=== PATIENT | male | born 1960 | race Caucasian/White ===

== ENCOUNTER → 2017-05-06 | Outpatient (CLI) | payer BC ==
[2017-05-06 09:53] LABS: Basophils # (A) 0.1 k/uL (0-0.2); Basophils % (A) 1 %; CHCM 32.4; Eosinophils # (A) 0.2 k/uL (0-0.7); Eosinophils % (A) 3 %; HCT 46.8 % (39.0-53.0); HDW 2.19; Luc # (Auto) 0.12; Luc % (Auto) 3; Lymphocytes # (A) 1.3 k/uL (1.0-4.8); Lymphocytes % (A) 29 %; MCH 30.7 pg (25.0-35.0); MCV 96.1 fL (80.0-100.0); Mean Platelet Volume 7.2; Monocytes # (A) 0.4 k/uL (0-1.0); Monocytes % (A) 9 %; Neutrophils # (A) 2.5 k/uL (1.3-7.7); Neutrophils % (A) 55 %; RBC 4.87 m/uL (4.30-5.90); RDW 13.3 % (11.5-15.5); WBC 4.6 k/uL (3.8-10.6); WBC (Perox) 4.67
[2017-05-06 11:17] LABS: ALT 43 U/L (21-72); AST 30 U/L (17-59); Alkaline Phosphatase 53 U/L (38-126); Anion Gap 8 mmol/L; Blood Urea Nitrogen 15 mg/dL (9-20); C Reactive Protein <5.0 mg/L (<10.0); Calcium 9.5 mg/dL (8.4-10.2); Carbon Dioxide 27 mmol/L (22-30); Chloride 101 mmol/L (98-107); Cholesterol 193 mg/dL (<200); Creatine Kinase 98 U/L (55-170); Glucose 91 mg/dL (74-99); HDL Cholesterol 57 mg/dL (40-60); Non-African American GFR(MDRD) >60 (>60 ml/min/1.73 sqM); Potassium 4.4 mmol/L (3.5-5.1); Sodium 136 mmol/L (137-145); Total Bilirubin 0.7 mg/dL (0.2-1.3); Total Protein 7.1 g/dL (6.3-8.2)
[2017-05-06 11:42] LABS: Prostate Specific Antigen 0.74 ng/mL (0.00-4.00)
[2017-05-06 13:50] LABS: Erythrocyte Sedimentation Rate 2 mm/hr (0-15)
== END | disposition home or self-care (01) ==
LOC: LABWHC1 09:10
PROVIDERS: ATTEND Internal Medicine
DX: E78.5 Hyperlipidemia, unspecified (principal); N40.0 Benign prostatic hyperplasia without lower urinary tract symptoms; I45.10 Unspecified right bundle-branch block
CPT/HCPCS: 36415; 80053; 80061; 82306; 82550; 84153; 84443; 85025; 85652; 86140

== ENCOUNTER → 2017-09-04 | Outpatient (CLI) | payer BC ==
--- NOTE | 2017-09-04 15:04 | XR ---
EXAMINATION TYPE: XR chest 2V DATE OF EXAM: 09/04/2017 COMPARISON: Prior chest x-ray 10/30/2009 HISTORY: COPD and shortness of breath TECHNIQUE: Frontal and lateral views of the chest are obtained. FINDINGS: There is no focal air space opacity, pleural effusion, or pneumothorax seen. The cardiac silhouette size is within normal limits. Lung volumes are prominent. The osseous structures are inta ct. IMPRESSION: No acute cardiopulmonary process.
== END | disposition home or self-care (01) ==
LOC: RADXRMAIN 14:09
PROVIDERS: ATTEND Internal Medicine
DX: R06.02 Shortness of breath (principal); J44.9 Chronic obstructive pulmonary disease, unspecified
CPT/HCPCS: 71046

== ENCOUNTER 2018-01-13 01:13 | Emergency (ER) | payer BC ==
[2018-01-13 01:25] VITALS: TEMP 97.7
[2018-01-13 01:25] LABS: Glucose,Whole Blood 90 mg/dL (75-99)
[2018-01-13] MEDS ORDERED: SODIUM CHLORIDE 0.9% 1,000 ML IV STA (01:25)
--- NOTE | 2018-01-13 01:29 | ED ---
General Adult HPI - General Chief complaint: Dizziness Stated complaint: Lightheadedness Time Seen by Provider: 01/13/18 01:15 Source: patient, EMS, RN notes reviewed Mode of arrival: EMS Limitations: no limitations - History of Present Illness Initial comments: Patient is a pleasant 57-year-old male presenting to the emergency department with lightheadedness. Patient awoke from sleep around 12:10 AM. Patient felt lightheaded. Patient was able to get up and use the restroom without difficulty. Patient did feel flushed. Symptoms lasted 10-15 minutes and have now resolved. Patient states he did feel anxious after the onset of his symptoms. Patient states there is a history of anxiety and his family. Patient describes dizziness as lightheadedness. Patient denies any spinning type sensation. No speech problems. No difficulty with walking. No weakness. No loss of sensation. - Related Data Home Medications Medication Instructions Recorded Confirmed Rosuvastatin Calcium [Crestor] 1 tab PO DIRECTED 10/07/14 02/17/16 Allergies Allergy/AdvReac Type Severity Reaction Status Date / Time Penicillins Allergy Rash/Hives Verified 02/17/16 07:52 Review of Systems ROS Statement: Those systems with pertinent positive or pertinent negative responses have been documented in the HPI. ROS Other: All systems not noted in ROS Statement are negative. Constitutional: Denies: fever Eyes: Denies: eye pain ENT: Denies: ear pain Respiratory: Denies: cough Cardiovascular: Denies: chest pain Endocrine: Denies: fatigue Gastrointestinal: Denies: abdominal pain Genitourinary: Denies: dysuria Musculoskeletal: Denies: back pain Skin: Denies: rash Neurological: Denies: headache, confusion Psychiatric: Reports: anxiety Past Medical History Past Medical History: Hyperlipidemia History of Any Multi-Drug Resistant Organisms: None Reported Additional Past Surgical History / Comment(s): sinus surgery, cyst removed from vocal cord Past Psychological History: No Psychological Hx Reported Smoking Status: Current some day smoker Past Alcohol Use History: Daily Past Drug Use History: None Reported General Exam Limitations: no limitations General appearance: alert, in no apparent distress Head exam: Present: atraumatic Eye exam: Present: normal appearance, PERRL, EOMI. Absent: nystagmus ENT exam: Present: normal oropharynx Neck exam: Present: normal inspection Respiratory exam: Present: normal lung sounds bilaterally Cardiovascular Exam: Present: regular rate, normal rhythm GI/Abdominal exam: Present: soft. Absent: tenderness Extremities exam: Present: normal inspection Neurological exam: Present: alert, oriented X3, CN II-XII intact. Absent: motor sensory deficit Expanded Neurological exam: Present: protecting the airway Patient oriented to: Present: person, place, time Speech: Present: fluid speech Cranial nerves: EOM's Intact: Normal, Facial Sensation: Normal Sensory exam: Upper Extremity Light Touch: Normal, Lower Extremity Light Touch: Normal Motor strength exam: RUE: 5, LUE: 5, RLE: 5, LLE: 5 Eye Response: (4) open spontaneously Motor Response: (6) obeys commands Verbal Response: (5) oriented Psychiatric exam: Present: normal affect, normal mood Skin exam: Present: normal color Course Vital Signs 01/13/18 01/13/18 01:20 02:30 Temperature 97.7 F Pulse Rate 69 62 Respiratory 18 16 Rate Blood Pressure 139/82 124/75 O2 Sat by Pulse 98 98 Oximetry EKG Findings - EKG Comments: EKG Findings:: Normal sinus rhythm 68. [place] 138. QRS 100. QT 402. QTC 427. Normal axis. Normal QRS. No acute ST change. Medical Decision Making - Medical Decision Making Patient reevaluated and resting comfortably in bed. Patient remained symptom- free at this time. Patient believes his symptoms were likely related to stress. Patient and family updated on results and need for follow-up. - Lab Data Result diagrams: 01/13/18 01:24 01/13/18 02:38 Lab Results 01/13/18 01/13/18 01/13/18 Range/Units 01:24 01:24 01:24 WBC 5.9 (3.8-10.6) k/uL RBC 4.68 (4.30-5.90) m/uL Hgb 14.8 (13.0-17.5) gm/dL Hct 43.4 (39.0-53.0) % MCV 92.6 (80.0-100.0) fL MCH 31.6 (25.0-35.0) pg MCHC 34.2 (31.0-37.0) g/dL RDW 12.7 (11.5-15.5) % Plt Count 259 (150-450) k/uL Neutrophils % 52 % Lymphocytes % 34 % Monocytes % 7 % Eosinophils % 4 % Basophils % 1 % Neutrophils # 3.1 (1.3-7.7) k/uL Lymphocytes # 2.0 (1.0-4.8) k/uL Monocytes # 0.4 (0-1.0) k/uL Eosinophils # 0.2 (0-0.7) k/uL Basophils # 0.0 (0-0.2) k/uL PT 10.5 (9.0-12.0) sec INR 1.1 (<1.2) APTT 24.1 (22.0-30.0) sec Sodium (137-145) mmol/L Potassium (3.5-5.1) mmol/L Chloride (98-107) mmol/L Carbon Dioxide (22-30) mmol/L Anion Gap mmol/L BUN (9-20) mg/dL Creatinine (0.66-1.25) mg/dL Est GFR (CKD-EPI)AfAm (>60 ml/min/1.73 sqM) Est GFR (CKD-EPI)NonAf (>60 ml/min/1.73 sqM) Glucose (74-99) mg/dL POC Glucose (mg/dL) 90 (75-99) mg/dL POC Glu [employer] Bagger ID Yulia, Nikki Calcium (8.4-10.2) mg/dL Total Bilirubin (0.2-1.3) mg/dL AST (17-59) U/L ALT (21-72) U/L Alkaline Phosphatase (38-126) U/L Total Creatine Kinase (55-170) U/L CK-MB (CK-2) (0.0-2.4) ng/mL CK-MB (CK-2) Rel Index Troponin I (0.000-0.034) ng/mL Total Protein (6.3-8.2) g/dL Albumin (3.5-5.0) g/dL Urine Color Urine Appearance (Clear) Urine pH (5.0-8.0) Ur Specific [place] (1.001-1.035) Urine Protein (Negative) Urine Glucose (UA) (Negative) Urine Ketones (Negative) Urine Blood (Negative) Urine Nitrite (Negative) Urine Bilirubin (Negative) Urine Urobilinogen (<2.0) mg/dL Ur Leukocyte Esterase (Negative) 01/13/18 01/13/18 01/13/18 Range/Units 02:38 02:38 02:38 WBC (3.8-10.6) k/uL RBC (4.30-5.90) m/uL Hgb (13.0-17.5) gm/dL Hct (39.0-53.0) % MCV (80.0-100.0) fL MCH (25.0-35.0) pg MCHC (31.0-37.0) g/dL RDW (11.5-15.5) % Plt Count (150-450) k/uL Neutrophils % % Lymphocytes % % Monocytes % % Eosinophils % % Basophils % % Neutrophils # (1.3-7.7) k/uL Lymphocytes # (1.0-4.8) k/uL Monocytes # (0-1.0) k/uL Eosinophils # (0-0.7) k/uL Basophils # (0-0.2) k/uL PT (9.0-12.0) sec INR (<1.2) APTT (22.0-30.0) sec Sodium 139 (137-145) mmol/L Potassium 3.9 (3.5-5.1) mmol/L Chloride 105 (98-107) mmol/L Carbon Dioxide 26 (22-30) mmol/L Anion Gap 8 mmol/L BUN 12 (9-20) mg/dL Creatinine 0.60 L (0.66-1.25) mg/dL Est GFR (CKD-EPI)AfAm >90 (>60 ml/min/1.73 sqM) Est GFR (CKD-EPI)NonAf >90 (>60 ml/min/1.73 sqM) Glucose 93 (74-99) mg/dL POC Glucose (mg/dL) (75-99) mg/dL POC Glu [employer] Bagger ID Calcium 9.4 (8.4-10.2) mg/dL Total Bilirubin 0.4 (0.2-1.3) mg/dL AST 28 (17-59) U/L ALT 36 (21-72) U/L Alkaline Phosphatase 44 (38-126) U/L Total Creatine Kinase 93 (55-170) U/L CK-MB (CK-2) 1.2 (0.0-2.4) ng/mL CK-MB (CK-2) Rel Index 1.3 Troponin I <0.012 (0.000-0.034) ng/mL Total Protein 6.6 (6.3-8.2) g/dL Albumin 4.1 (3.5-5.0) g/dL Urine Color Colorless Urine Appearance Clear (Clear) Urine pH 6.5 (5.0-8.0) Ur Specific [place] 1.004 (1.001-1.035) Urine Protein Negative (Negative) Urine Glucose (UA) Negative (Negative) Urine Ketones Negative (Negative) Urine Blood Negative (Negative) Urine Nitrite Negative (Negative) Urine Bilirubin Negative (Negative) Urine Urobilinogen <2.0 (<2.0) mg/dL Ur Leukocyte Esterase Negative (Negative) - Radiology Data Radiology results: report reviewed (Computed tomography scan of the brain shows no acute process), image reviewed (X-ray shows no acute process) Disposition Clinical Impression: Light headedness Disposition: HOME SELF-CARE Condition: Stable Instructions: Dizziness (ED) Additional Instructions: Please follow-up with primary care physician in the next day or 2 for recheck. Return for weakness, confusion, speech problems, increased dizziness, worsening symptoms or other concerns. Is patient prescribed a controlled substance at d/c from ED?: No Referrals: Darren Gale MD [Primary Care Provider] - 1-2 days Time of Disposition: 03:38
[2018-01-13 01:53] LABS: INR 1.1 (<1.2); Partial Thromboplastin Time 24.1 sec (22.0-30.0); Prothrombin Time 10.5 sec (9.0-12.0)
[2018-01-13 01:56] LABS: Basophils % (A) 1 %; Eosinophils # (A) 0.2 k/uL (0-0.7); Eosinophils % (A) 4 %; HCT 43.4 % (39.0-53.0); HGB 14.8 gm/dL (13.0-17.5); Lymphocytes % (A) 34 %; MCH 31.6 pg (25.0-35.0); MCHC 34.2 g/dL (31.0-37.0); MCV 92.6 fL (80.0-100.0); Mean Platelet Volume 6.8; Monocytes # (A) 0.4 k/uL (0-1.0); Monocytes % (A) 7 %; Neutrophils # (A) 3.1 k/uL (1.3-7.7); Neutrophils % (A) 52 %; Platelet Count 259 k/uL (150-450); RBC 4.68 m/uL (4.30-5.90); RDW 12.7 % (11.5-15.5); WBC 5.9 k/uL (3.8-10.6)
--- NOTE | 2018-01-13 02:29 | CT ---
EXAMINATION TYPE: CT brain wo con DATE OF EXAM: 01/13/2018 COMPARISON: 10/07/2014 HISTORY: flush;weakness CT DLP: 1081.60 mGycm Automated exposure control for dose reduction was used. FINDINGS: Ventricles of normal size. There is no mass effect nor midline shift. There is no sign of intracrania l hemorrhage. The calvarium is intact. IMPRESSION: NEGATIVE CT SCAN OF THE BRAIN. NO CHANGE.
--- NOTE | 2018-01-13 02:30 | XR ---
EXAMINATION TYPE: XR chest 2V DATE OF EXAM: 01/13/2018 COMPARISON: 09/04/2017 HISTORY: Weakness TECHNIQUE: Frontal and lateral views of the chest are obtained. FINDINGS: Heart and mediastinum are normal. Lungs are clear. Costophrenic angles are clear. Bony tho rax is intact. There are chest leads. IMPRESSION: Normal chest. No change.
[2018-01-13 02:48] LABS: Appearance,Urine Clear (Clear); Bilirubin,Urine Negative (Negative); Blood,Urine Negative (Negative); Color,Urine Colorless; Glucose,Urine (UA) Negative (Negative); Ketones,Urine Negative (Negative); Leukocyte Esterase,Urine Negative (Negative); Nitrite,Urine Negative (Negative); PH, Urine 6.5 (5.0-8.0); Protein,Urine Negative (Negative); Specific Gravity,Urine 1.004 (1.001-1.035); Urobilinogen,Urine <2.0 mg/dL (<2.0)
[2018-01-13 02:57] LABS: ALT 36 U/L (21-72); AST 28 U/L (17-59); Albumin 4.1 g/dL (3.5-5.0); Alkaline Phosphatase 44 U/L (38-126); Anion Gap 8 mmol/L; Blood Urea Nitrogen 12 mg/dL (9-20); Calcium 9.4 mg/dL (8.4-10.2); Carbon Dioxide 26 mmol/L (22-30); Chloride 105 mmol/L (98-107); Glucose 93 mg/dL (74-99); Potassium 3.9 mmol/L (3.5-5.1); Sodium 139 mmol/L (137-145); Total Bilirubin 0.4 mg/dL (0.2-1.3); Total Protein 6.6 g/dL (6.3-8.2)
[2018-01-13 03:10] LABS: Creatine Kinase 93 U/L (55-170)
[2018-01-13 03:24] LABS: Creatine Kinase MB 1.2 ng/mL (0.0-2.4); Troponin I <0.012 ng/mL (0.000-0.034)
[2018-01-13 04:11] VITALS: BP 120/69; PULSE 65; RESP 18
== END 2018-01-13 04:07 | disposition home or self-care (01) ==
LOC: EC 01:13
DX: R42 Dizziness and giddiness (principal); F41.9 Anxiety disorder, unspecified; E78.5 Hyperlipidemia, unspecified; F17.200 Nicotine dependence, unspecified, uncomplicated; Z79.899 Other long term (current) drug therapy; Z88.0 Allergy status to penicillin
CPT/HCPCS: 36415; 70450; 71046; 80053; 81003; 82550; 82553; 84484; 85025; 85610; 85730; 93005; 96360; 99285

== ENCOUNTER → 2018-05-28 | Outpatient (CLI) | payer BC ==
[2018-05-28 08:19] LABS: Basophils # (A) 0.1 k/uL (0-0.2); Basophils % (A) 1 %; Eosinophils # (A) 0.2 k/uL (0-0.7); Eosinophils % (A) 5 %; HCT 46.1 % (39.0-53.0); HGB 15.1 gm/dL (13.0-17.5); Lymphocytes # (A) 1.4 k/uL (1.0-4.8); Lymphocytes % (A) 33 %; MCH 30.3 pg (25.0-35.0); MCHC 32.7 g/dL (31.0-37.0); MCV 92.8 fL (80.0-100.0); Mean Platelet Volume 6.2; Monocytes # (A) 0.3 k/uL (0-1.0); Monocytes % (A) 7 %; Neutrophils # (A) 2.2 k/uL (1.3-7.7); Neutrophils % (A) 51 %; Platelet Count 286 k/uL (150-450); RBC 4.97 m/uL (4.30-5.90); RDW 12.3 % (11.5-15.5); WBC 4.3 k/uL (3.8-10.6)
[2018-05-28 12:09] LABS: Erythrocyte Sedimentation Rate 2 mm/hr (0-15)
[2018-05-28 17:43] LABS: ALT 27 U/L (10-49); AST 27 U/L (14-35); Albumin/Globulin Ratio 2.25 (1.20-2.10); Alkaline Phosphatase 56 U/L (41-126); C Reactive Protein <0.4 mg/dL (0.0-0.8); Calcium 9.5 mg/dL (8.7-10.3); Chloride 104 mmol/L (96-109); Cholesterol 212 mg/dL (0-200); Creatine Kinase 97 U/L (35-257); Glucose 85 mg/dL (70-110); LDL Cholesterol,Calculated 120.6 mg/dL (0.0-131.0); Potassium 4.1 mmol/L (3.5-5.5); Sodium 138 mmol/L (135-145); Total Bilirubin 0.8 mg/dL (0.3-1.2); Total Protein 6.5 g/dL (6.2-8.2)
== END | disposition home or self-care (01) ==
LOC: LABWHC1 07:36
PROVIDERS: ATTEND Internal Medicine
DX: E78.5 Hyperlipidemia, unspecified (principal); E55.9 Vitamin D deficiency, unspecified; D64.9 Anemia, unspecified; N40.0 Benign prostatic hyperplasia without lower urinary tract symptoms; F41.9 Anxiety disorder, unspecified; R42 Dizziness and giddiness; M19.90 Unspecified osteoarthritis, unspecified site
CPT/HCPCS: 36415; 80053; 80061; 82306; 82550; 84153; 84443; 85025; 85652; 86140

== ENCOUNTER → 2018-06-01 | Outpatient (CLI) | payer BC | LOC: LABWHC1 10:24 | PROVIDERS: ATTEND Internal Medicine | DX: D64.9 Anemia, unspecified (principal); N40.0 Benign prostatic hyperplasia without lower urinary tract symptoms; E78.5 Hyperlipidemia, unspecified; M81.0 Age-related osteoporosis without current pathological fracture; E55.9 Vitamin D deficiency, unspecified; F41.9 Anxiety disorder, unspecified; R42 Dizziness and giddiness | CPT/HCPCS: 36415; 82272 ==

== ENCOUNTER → 2019-04-30 | Outpatient (CLI) | payer BC ==
[2019-04-30 08:53] LABS: Basophils # (A) 0.1 k/uL (0-0.2); Basophils % (A) 2 %; Eosinophils # (A) 0.2 k/uL (0-0.7); Eosinophils % (A) 5 %; HCT 45.9 % (39.0-53.0); HGB 14.8 gm/dL (13.0-17.5); Lymphocytes # (A) 1.3 k/uL (1.0-4.8); Lymphocytes % (A) 32 %; MCH 30.5 pg (25.0-35.0); MCHC 32.2 g/dL (31.0-37.0); MCV 94.7 fL (80.0-100.0); Mean Platelet Volume 6.3; Monocytes # (A) 0.4 k/uL (0-1.0); Monocytes % (A) 10 %; Neutrophils # (A) 1.9 k/uL (1.3-7.7); Neutrophils % (A) 47 %; Platelet Count 284 k/uL (150-450); RBC 4.85 m/uL (4.30-5.90)
[2019-04-30 09:42] LABS: Erythrocyte Sedimentation Rate 2 mm/hr (0-15)
[2019-04-30 17:46] LABS: ALT 21 U/L (10-49); AST 27 U/L (14-35); African American GFR (CKD) 112.5 (60.0-200.0); Albumin/Globulin Ratio 1.91 (1.60-3.17); Alkaline Phosphatase 62 U/L (41-126); C Reactive Protein <0.4 mg/dL (0.0-0.8); Calcium 9.2 mg/dL (8.7-10.3); Carbon Dioxide 26.9 mmol/L (21.6-31.8); Chloride 103 mmol/L (96-109); Chol/HDL Ratio 2.92; Cholesterol 172 mg/dL (0-200); Creatine Kinase 113 U/L (35-257); Globulin 2.2 g/dL (1.6-3.3); Glucose 84 mg/dL (70-110); LDL Cholesterol,Calculated 82.2 mg/dL (0.0-131.0); Phosphorus 3.7 mg/dL (2.4-5.1); Potassium 4.1 mmol/L (3.5-5.5); Sodium 138 mmol/L (135-145); Total Bilirubin 0.9 mg/dL (0.3-1.2); Total Protein 6.4 g/dL (6.2-8.2)
== END | disposition home or self-care (01) ==
LOC: LABWHC1 08:25
PROVIDERS: ATTEND Internal Medicine
DX: Z00.00 Encounter for general adult medical examination without abnormal findings (principal); N40.0 Benign prostatic hyperplasia without lower urinary tract symptoms; E87.8 Other disorders of electrolyte and fluid balance, not elsewhere classified; E55.9 Vitamin D deficiency, unspecified; E78.5 Hyperlipidemia, unspecified
CPT/HCPCS: 36415; 80053; 80061; 82306; 82550; 83735; 84100; 84153; 85025; 85652; 86140

== ENCOUNTER → 2020-10-26 | Outpatient (CLI) | payer BC ==
[2020-10-26 11:34] LABS: Basophils # (A) 0.06 X 10*3/uL (0.00-0.10); Basophils % (A) 1.3 %; Eosinophils # (A) 0.23 X 10*3/uL (0.04-0.35); Eosinophils % (A) 4.8 %; HCT 42.8 % (39.6-50.0); HGB 14.4 g/dL (13.0-17.0); Lymphocytes # (A) 1.66 X 10*3/uL (0.90-5.00); Lymphocytes % (A) 34.7 %; MCH 31.3 pg (27.0-32.0); MCHC 33.6 g/dL (32.0-37.0); Mean Platelet Volume 9.4 fL (9.5-12.2); Monocytes # (A) 0.66 X 10*3/uL (0.20-1.00); Monocytes % (A) 13.8 %; Neutrophils # (A) 2.18 X 10*3/uL (1.80-7.70); Neutrophils % (A) 45.4 %; Platelet Count 269 X 10*3/uL (140-440); RDW 11.9 % (11.5-14.5); WBC 4.79 X 10*3/uL (4.50-10.00)
[2020-10-26 13:00] LABS: ALT 20 U/L (10-49); AST 22 U/L (14-35); African American GFR (CKD) 111.7 (60.0-200.0); Alkaline Phosphatase 64 U/L (41-126); BUN/Creat Ratio 16.25 Ratio (12.00-20.00); C Reactive Protein <0.4 mg/dL (0.0-0.8); Calcium 9.3 mg/dL (8.7-10.3); Carbon Dioxide 29.2 mmol/L (21.6-31.8); Chloride 103 mmol/L (96-109); Chol/HDL Ratio 2.75; Cholesterol 165 mg/dL (0-200); Creatine Kinase 124 U/L (35-257); Globulin 2.2 g/dL (1.6-3.3); Glucose 104 mg/dL (70-110); LDL Cholesterol,Calculated 88.4 mg/dL (0.0-131.0); Magnesium 1.9 mg/dL (1.5-2.4); Non-African American GFR(CKD) 96.4 (60.0-200.0); Phosphorus 3.9 mg/dL (2.4-5.1); Potassium 4.2 mmol/L (3.5-5.5); Prostate Specific Antigen 0.6 ng/mL (0.0-4.5); Sodium 138 mmol/L (135-145); Total Bilirubin 0.8 mg/dL (0.3-1.2); Total Protein 6.6 g/dL (6.2-8.2)
[2020-10-26 13:48] LABS: Erythrocyte Sedimentation Rate 2 mm/Hr (0-20)
== END | disposition home or self-care (01) ==
LOC: LABWHC1 07:11
PROVIDERS: ATTEND Internal Medicine
DX: Z00.00 Encounter for general adult medical examination without abnormal findings (principal); N40.0 Benign prostatic hyperplasia without lower urinary tract symptoms; E87.8 Other disorders of electrolyte and fluid balance, not elsewhere classified; E78.5 Hyperlipidemia, unspecified; E55.9 Vitamin D deficiency, unspecified
CPT/HCPCS: 36415; 80053; 80061; 82306; 82550; 83735; 84100; 84153; 85025; 85652; 86140

== ENCOUNTER → 2021-07-16 | Outpatient (CLI) | payer BC ==
[2021-07-16 14:49] LABS: Basophils # (A) 0.05 X 10*3/uL (0.00-0.10); Basophils % (A) 1.1 %; Eosinophils # (A) 0.13 X 10*3/uL (0.04-0.35); Eosinophils % (A) 2.9 %; HCT 45.4 % (39.6-50.0); HGB 14.9 g/dL (13.0-17.0); MCH 30.8 pg (27.0-32.0); MCHC 32.8 g/dL (32.0-37.0); MCV 93.8 fL (80.0-97.0); Mean Platelet Volume 9.6 fL (9.5-12.2); Monocytes # (A) 0.63 X 10*3/uL (0.20-1.00); Monocytes % (A) 14.3 %; Neutrophils # (A) 2.09 X 10*3/uL (1.80-7.70); Neutrophils % (A) 47.5 %; Platelet Count 281 X 10*3/uL (140-440); RBC 4.84 X 10*6/uL (4.40-5.60); WBC 4.41 X 10*3/uL (4.50-10.00)
[2021-07-16 15:48] LABS: ALT 22 U/L (10-49); AST 27 U/L (14-35); African American GFR (CKD) 107.5 (60.0-200.0); Albumin 4.5 g/dL (3.8-4.9); Albumin/Globulin Ratio 1.75 (1.60-3.17); Alkaline Phosphatase 60 U/L (41-126); BUN/Creat Ratio 14.45 Ratio (12.00-20.00); Blood Urea Nitrogen 12.5 mg/dL (9.0-27.0); Calcium 9.5 mg/dL (8.7-10.3); Carbon Dioxide 27.1 mmol/L (20.0-27.5); Chloride 100 mmol/L (96-109); Creatine Kinase 100 U/L (35-257); Globulin 2.6 g/dL (1.6-3.3); Glucose 94 mg/dL (70-110); Magnesium 2.2 mg/dL (1.5-2.4); Non-African American GFR(CKD) 92.7 (60.0-200.0); Phosphorus 3.2 mg/dL (2.4-5.1); Potassium 4.2 mmol/L (3.5-5.5); Sodium 137 mmol/L (135-145); Total Protein 7.1 g/dL (6.2-8.2)
[2021-07-16 16:15] LABS: C Reactive Protein <0.30 mg/dL (0.00-0.80)
[2021-07-16 17:50] LABS: Erythrocyte Sedimentation Rate 2 mm/Hr (0-20)
[2021-07-17 06:25] LABS: Chol/HDL Ratio 3.18 Ratio; LDL Cholesterol,Calculated 106.6 mg/dL (0.0-131.0); VLDL Calculation 19.56 mg/dL (5.00-40.00)
== END | disposition home or self-care (01) ==
LOC: LABWHC1 07:24
PROVIDERS: ATTEND Internal Medicine
DX: Z00.00 Encounter for general adult medical examination without abnormal findings (principal); E78.5 Hyperlipidemia, unspecified; E87.8 Other disorders of electrolyte and fluid balance, not elsewhere classified; E55.9 Vitamin D deficiency, unspecified; N40.0 Benign prostatic hyperplasia without lower urinary tract symptoms
CPT/HCPCS: 36415; 80053; 80061; 82272; 82306; 82550; 83735; 84100; 84153; 85025; 85652; 86140

== ENCOUNTER → 2022-10-30 | Outpatient (CLI) | payer BC | END | disposition home or self-care (01) | LOC: LABWHC1 15:00 | PROVIDERS: ATTEND Internal Medicine | DX: Z53.9 Procedure and treatment not carried out, unspecified reason (principal) ==

== ENCOUNTER → 2023-11-13 | Outpatient (CLI) | payer BC ==
[2023-11-13 11:16] LABS: Basophils # (A) 0.06 X 10*3/uL (0.00-0.10); Basophils % (A) 1.3 %; Eosinophils # (A) 0.15 X 10*3/uL (0.04-0.35); Eosinophils % (A) 3.2 %; HGB 14.3 g/dL (13.0-17.0); Lymphocytes # (A) 1.49 X 10*3/uL (0.90-5.00); Lymphocytes % (A) 31.8 %; MCH 31.1 pg (27.0-32.0); MCHC 33.3 g/dL (32.0-37.0); MCV 93.5 FL (80.0-97.0); Mean Platelet Volume 9.7 FL (9.5-12.2); Monocytes # (A) 0.57 X 10*3/uL (0.20-1.00); Monocytes % (A) 12.2 %; NRBC Per 100 WBC 0 X 10*3/uL (0.00-0.01); Neutrophils % (A) 51.3 %; Platelet Count 279 X 10*3/uL (140-440); RDW 12.3 % (11.5-14.5); WBC 4.68 X 10*3/uL (4.50-10.00)
[2023-11-13 11:34] LABS: % Iron Saturation 36.75 (15.00-50.00); ALT 25 U/L (10-49); AST 27 U/L (14-35); Albumin 4.6 g/dL (3.8-4.9); Albumin/Globulin Ratio 1.92 Ratio (1.60-3.17); Alkaline Phosphatase 55 U/L (41-126); BUN/Creat Ratio 15.12 Ratio (12.00-20.00); Blood Urea Nitrogen 12.1 mg/dL (9.0-27.0); C Reactive Protein <0.30 mg/dL (0.00-0.80); Calcium 9.6 mg/dL (8.7-10.3); Carbon Dioxide 28.3 mmol/L (21.6-31.8); Chloride 100 mmol/L (96-109); Chol/HDL Ratio 2.61 Ratio; Creatine Kinase 116 U/L (35-257); Globulin 2.4 g/dL (1.6-3.3); Glucose 87 mg/dL (70-110); Iron 122 UG/DL (65-175); LDL Cholesterol,Calculated 82.3 mg/dL (0.0-131.0); Magnesium 2.1 mg/dL (1.5-2.4); Phosphorus 3.4 mg/dL (2.4-5.1); Potassium 4.3 mmol/L (3.5-5.5); Prostate Specific Antigen 0.61 ng/mL (0.000-4.500); Sodium 138 mmol/L (135-145); Total Bilirubin 0.5 mg/dL (0.3-1.2); Total Iron Binding Capacity 332 UG/DL (228-460); Uric Acid 4.7 mg/dL (3.7-8.7); VLDL Calculation 19.46 mg/dL (5.00-40.00)
[2023-11-13 11:46] LABS: Erythrocyte Sedimentation Rate 4 mm/Hr (0-20)
== END | disposition home or self-care (01) ==
LOC: LABWHC1 06:55
PROVIDERS: ATTEND Internal Medicine
DX: Z00.00 Encounter for general adult medical examination without abnormal findings (principal); D64.9 Anemia, unspecified; M10.9 Gout, unspecified; E03.9 Hypothyroidism, unspecified; E55.9 Vitamin D deficiency, unspecified
CPT/HCPCS: 36415; 80053; 80061; 82306; 82550; 82728; 83540; 83550; 83735; 84100; 84153; 84443; 84550; 85025; 85652; 86140

== ENCOUNTER → 2024-12-20 | Outpatient (CLI) | payer BC ==
[2024-12-20 15:30] LABS: Basophils # (A) 0.02 X 10*3/uL (0.00-0.10); Basophils % (A) 0.4 %; Eosinophils # (A) 0.21 X 10*3/uL (0.04-0.35); Eosinophils % (A) 4.0 %; HCT 45.7 % (39.6-50.0); HGB 15.0 g/dL (13.0-17.0); Immature Grans, Automated 0.40 %; Lymphocytes # (A) 1.60 X 10*3/uL (0.90-5.00); Lymphocytes % (A) 30.8 %; MCH 31.1 pg (27.0-32.0); MCHC 32.8 g/dL (32.0-37.0); MCV 94.6 FL (80.0-97.0); Monocytes # (A) 0.67 X 10*3/uL (0.20-1.00); Monocytes % (A) 12.9 %; NRBC Per 100 WBC 0 X 10*3/uL (0.00-0.01); Neutrophils # (A) 2.68 X 10*3/uL (1.80-7.70); Neutrophils % (A) 51.5 %; Platelet Count 296 X 10*3/uL (140-440); RBC 4.83 X 10*6/uL (4.40-5.60); RDW 12.2 % (11.5-14.5); WBC 5.20 X 10*3/uL (4.50-10.00)
[2024-12-20 16:05] LABS: ALT 30 U/L (10-49); AST 29 U/L (14-35); Albumin 4.7 g/dL (3.8-4.9); Albumin/Globulin Ratio 2.04 Ratio (1.60-3.17); Alkaline Phosphatase 60 U/L (41-126); Anion Gap 10.80 mmol/L (4.00-12.00); BUN/Creat Ratio 16.57 Ratio (12.00-20.00); Blood Urea Nitrogen 11.6 mg/dL (9.0-27.0); Calcium 9.7 mg/dL (8.7-10.3); Carbon Dioxide 27.2 mmol/L (21.6-31.8); Chloride 103 mmol/L (96-109); Cholesterol 184.00 mg/dL (0.00-200.00); Ferritin 282.0 ng/mL (22.0-322.0); Globulin 2.3 g/dL (1.6-3.3); Glucose 89 mg/dL (70-110); HDL Cholesterol 57.50 mg/dL (40.00-60.00); Iron 116 UG/DL (65-175); LDL Cholesterol,Calculated 103.9 mg/dL (0.0-131.0); Magnesium 2.1 mg/dL (1.5-2.4); Potassium 4.5 mmol/L (3.5-5.5); Prostate Specific Antigen 0.67 ng/mL (0.000-4.500); Sodium 141 mmol/L (135-145); Total Iron Binding Capacity 346 UG/DL (228-460); Total Protein 7.0 g/dL (6.2-8.2); Triglycerides 113.00 mg/dL (0.00-149.00); Uric Acid 4.9 mg/dL (3.7-8.7); VLDL Calculation 22.60 mg/dL (5.00-40.00)
== END | disposition home or self-care (01) ==
LOC: LABWHC1 07:41
PROVIDERS: ATTEND Internal Medicine
DX: D64.9 Anemia, unspecified (principal); N40.0 Benign prostatic hyperplasia without lower urinary tract symptoms; E87.8 Other disorders of electrolyte and fluid balance, not elsewhere classified; E78.5 Hyperlipidemia, unspecified; E55.9 Vitamin D deficiency, unspecified
CPT/HCPCS: 36415; 80053; 80061; 82306; 82728; 83540; 83550; 83735; 84100; 84153; 84443; 84550; 85025; 85652; 86140